=== PATIENT | male | born 1950 | race Caucasian/White ===

== ENCOUNTER → 2017-05-29 | Outpatient (CLI) | payer BC ==
--- NOTE | 2017-05-29 11:27 | ECHOS ---
STRESS ECHOCARDIOGRAM DATE OF SERVICE: 05/29/2017 INDICATIONS: Pre-op cardiac evaluation. MEDICATIONS: BASELINE HEART RATE: 75 BASELINE BLOOD PRESSURE: 140/58 MAXIMUM HEART RATE: 128 MAXIMUM BLOOD PRESSURE: 205/101 85% MPHR: 131 100% MPHR: 154 METS: 10.3 MAXIMUM STAGE REACHED: III TOTAL EXERCISE TIME: 9 minutes CLINICAL INFORMATION: Baseline EKG shows sinus rhythm, normal axis, normal intervals. Patient exercised on Brandon protocol for a total of 9 minutes achieving 10 METs, 83% of predicted maximal heart rate without chest pain. Test was stopped at this level of activity due to elevated blood pressures. Baseline echo shows normal left ventricular size, wall motion and systolic function. Postexercise there was normal hyperdynamic response to all segments of myocardium noted. CONCLUSIONS: 1. Good exercise tolerance. 2. Abnormal stress test by EKG criteria. 3. Negative stress echo. TAYLOR / MAYUR: [id number] /
== END | disposition home or self-care (01) ==
LOC: RADNMMAIN 09:00
PROVIDERS: ATTEND Family Medicine
DX: R94.31 Abnormal electrocardiogram [ECG] [EKG] (principal)
CPT/HCPCS: 93017; 93350

== ENCOUNTER → 2018-01-03 | Day surgery (SDC) | payer BC, MEDICARE ==
[2018-01-02 09:08] VITALS: BMI 25.8
[~2018-01-03] MED LIST: GLYCOPYRROLATE 0.2 MG/ML 2 ML VIAL ONE; LACTATED RINGERS 1,000 ML IV SCH; LIDOCAINE 1% 20 ML VIAL (10MG/ML) FOR IV START INTRADERMA PRN; LIDOCAINE 1% INJ 10MG/ML (20 ML MDV) ONE; PROPOFOL 10 MG/ML 20 ML VIAL IV ONE
[2018-01-03 12:20] VITALS: RESP 16; TEMP 96.9
--- NOTE | 2018-01-03 13:33 | P.PCN ---
Date of Procedure: 01/03/18 Procedure(s) Performed: BRIEF HISTORY: Patient is a 67-year-old, pleasant, white male, scheduled for an upper endoscopy with possible dilation as a part of evaluation of progressive dysphagia to solids and liquids of several months duration. Lately his symptoms have been progressively getting worse.. He had a barium esophagogram done that showed dilated esophagus with significant esophageal dysmotility. PROCEDURE PERFORMED: Esophagogastroduodenoscopy with biopsy PREOPERATIVE DIAGNOSIS: Progressive dysphagia to solids and liquids of several months duration. IV sedation per anesthesia. PROCEDURE: After informed consent was obtained, the patient was brought into the endoscopy unit. IV sedation was administered by Anesthesia under continuous monitoring. Initially the Olympus GIF-140 video endoscope was inserted into the mouth. Esophagus intubated without any difficulty. The esophagus appeared very dilated with retained liquid secretions that were aspirated. Scope was advanced into the distal esophagus. The lower esophageal sphincter was very tight and with mild to moderate pressure I was able to advance the scope with a popping sensation into the stomach and duodenum and carefully examined. The bulb and the second part of the duodenum appeared normal. The scope at this time was withdrawn to the stomach, adequately insufflated with air, and upon careful examination, mucosa of the antrum, body, cardia and the fundus appeared normal. The scope was then withdrawn into the esophagus. Small hiatal hernia noted. The GE junction was located at 39 cm from the incisors. Once again the esophagus into was very tight suspicious for recent esophageal achalasia. The rest of the esophagus appeared dilated but mucosa appeared normal and biopsies were done from the midesophagus. There were no erosions or ulcerations seen and the patient tolerated the procedure well. IMPRESSION: 1. Dilated esophagus and very tight lower esophageal sphincter suspicious for esophageal achalasia. 2. Mall hiatal hernia. RECOMMENDATIONS: The findings of this examination were discussed with the patient as well as his family. He'll be scheduled for an esophageal manometry to evaluate for esophageal achalasia and he'll be seen in office in 3-4 weeks.
[2018-01-03 13:36] VITALS: BP 113/83; PULSE 75
== END ==
LOC: ORWHC2ENDO 11:17
PROVIDERS: ATTEND Internal Medicine Gastroenterology
DX: K22.8 Other specified diseases of esophagus (principal); K44.9 Diaphragmatic hernia without obstruction or gangrene; Z87.891 Personal history of nicotine dependence; K21.9 Gastro-esophageal reflux disease without esophagitis; Z79.82 Long term (current) use of aspirin
CPT/HCPCS: 88305; 43239; J2001; J2704